=== PATIENT | female | born 1950 | race African-American/Black ===

== ENCOUNTER 2021-01-19 09:48 | Outpatient (RCR) | payer OTHER | END 2021-01-27 | LOC: RESP 09:48 | PROVIDERS: ATTEND Internal Medicine | DX: G47.33 Obstructive sleep apnea (adult) (pediatric) (principal); I27.20 Pulmonary hypertension, unspecified; I31.3 Pericardial effusion (noninflammatory); J96.11 Chronic respiratory failure with hypoxia; K21.9 Gastro-esophageal reflux disease without esophagitis; Z95.0 Presence of cardiac pacemaker | CPT/HCPCS: G0238; G0424 ==

== ENCOUNTER 2021-02-25 10:00 | Outpatient (RCR) | payer OTHER | END 2021-02-26 | LOC: RESP 10:00 | PROVIDERS: ATTEND Internal Medicine | DX: I27.20 Pulmonary hypertension, unspecified (principal) | CPT/HCPCS: G0238; G0424 ==

== ENCOUNTER 2021-03-24 09:00 | Outpatient (RCR) | payer OTHER | END 2021-03-29 | LOC: RESP 09:00 | PROVIDERS: ATTEND Internal Medicine | DX: I27.20 Pulmonary hypertension, unspecified (principal) | CPT/HCPCS: G0238; G0424 ==